=== PATIENT | female | born 1985 | race Caucasian/White ===

== ENCOUNTER 2022-08-31 00:46 | Emergency (ER) | payer MEDICAID ==
[~2022-08-31] VITALS: Ht 162.6 cm; Wt 83.7 kg
[2022-08-31 01:13] VITALS: BP 127/95
[2022-08-31] MEDS ORDERED: IBUPROFEN 600MG TABLET PO STA (02:53)
[2022-08-31 03:23] LABS: CLARITY URINE CLOUDY (CLEAR); COLOR URINE YELLOW (YELLOW); KETONES URINE TRACE (NEGATIVE); LEUKOCYTE ESTERASE URINE 2+ (NEGATIVE); NITRITE URINE NEGATIVE (NEGATIVE); OCCULT BLOOD URINE 3+ (NEGATIVE); PH URINE 6.5 (4.5-8.0); PROTEIN URINE 3+ (NEGATIVE); UROBILINOGEN URINE 0.2 E.U./dL (0.2-1.0)
[2022-08-31] MEDS ORDERED: CEFTRIAXONE SODIUM 1 G/VIAL IM NR (03:29)
[2022-08-31] MEDS ORDERED: LIDOCAINE HCL 1% 20ML VIAL (Pyxis) INJ INFIL NR (03:30)
[2022-08-31] MEDS ORDERED: NAPR-681 PO (03:33)
[2022-08-31] MEDS ORDERED: SULF1TAB48 PO (03:33)
[2022-08-31] MEDS ORDERED: PYR200 PO (03:33)
== END 2022-08-31 03:55 | disposition home or self-care (01) ==
LOC: ER 00:46
DX: N39.0 Urinary tract infection, site not specified (principal)
CPT/HCPCS: 81003; 81025; 87077; 87186; 99283